=== PATIENT | female | born 1930 | race Caucasian/White ===

== ENCOUNTER 2017-10-15 23:07 | Emergency (ER) | payer MEDICARE ==
[2017-10-16 00:36] LABS: Bilirubin Negative (Negative); Blood, Urine Trace (Negative); Clarity CLEAR (Clear); Glucose, Urine (Dipstick) Negative (Negative); Leukocyte Negative (Negative); Nitrite Negative (Negative); Protein, Urine (Dipstick) Negative (Neg-Trace); Specific Gravity, Urine 1.006 (1.002-1.036); Urobilinogen 0.2 mg/dL (0.2-1.0); pH, Urine 7.5 (5.0-9.0)
[2017-10-16 00:37] LABS: #Basophils 0.1 thou/uL (0.0-0.2); #Eosinphils 0.1 thou/uL (0.0-0.7); #Lymphocytes 1.5 thou/uL (1.20-3.40); #Monocytes 0.5 thou/uL (0.11-0.59); #Neutrophils 3.1 thou/uL (1.40-6.50); %Basophils 1.9 % (0.0-1.0); %Eosinophils 1.2 % (0.0-10.0); %Lymphocytes 27.6 % (21.0-51.0); %Monocytes 9.8 % (0.0-10.0); %Neutrophils 59.6 % (42.0-75.0); Hemoglobin 14.9 g/dL (12.0-16.0); Mean Corpuscular HGB CONC 32.2 g/dL (32.0-36.0); Mean Corpuscular Hemoglobin 30.2 pg (27.0-31.0); Mean Corpuscular Volume 93.9 fl (81.0-99.0); Mean Platelet Volume 7.6 fL (7.4-10.4); Platelet Count 191 thou/uL (130-400); RBC Distribution Width 12.3 % (11.5-14.5); Red Blood Cell (RBC) Count 4.91 mill/uL (4.20-5.40); White Blood Cell (WBC) Count 5.3 thou/uL (4.8-10.8)
[2017-10-16 00:38] LABS: Bacteria/HPF None Seen HPF (None Seen); Hyaline Casts/LPF 0-3 HYALINE CAST LPF (0-3 Hyaline); RBC/HPF 0-3 HPF (0-3); Squamous Epithelial None Seen HPF (0-3); WBC/HPF None Seen HPF (0-3)
[2017-10-16 00:58] LABS: ALT (SGPT) 13 U/L (8-55); AST (SGOT) 22 U/L (5-34); Albumin 4.2 g/dL (3.4-4.8); Alkaline Phosphatase 98 U/L (40-150); Anion Gap 11 mmol/L (10-20); BUN (Urea Nitrogen) 15 mg/dL (9.8-20.1); Bilirubin, Total 1.4 mg/dL (0.2-1.2); Calc. Creatinine Clearance 0 mL/min (70-130); Calcium 9.5 mg/dL (7.8-10.44); Carbon Dioxide 29 mmol/L (23-31); Chloride 104 mmol/L (98-107); Estimated GFR-MDRD 66; Globulin 2.4 g/dL (2.4-3.5); Glucose 99 mg/dL (83-110); Potassium 3.6 mmol/L (3.5-5.1); Protein, Total 6.6 g/dL (6.0-8.3); Sodium 140 mmol/L (136-145)
[2017-10-16 01:02] LABS: CKMB 2.5 ng/mL (0-6.6); Troponin I Less than 0.010 ng/mL (< 0.028)
[2017-10-16] MEDS ORDERED: hydrALAZINE 20 MG/ML VIAL ONE (01:34)
--- NOTE | 2017-10-16 08:34 | CT ---
PRELIMINARY REPORT/[facility]/EMERGENCY AFTER-HOURS PROCEDURE: EXAM: CT Head Without Intravenous Contrast CLINICAL HISTORY: 87 years old, female; Signs and symptoms; Other: Pt shaking TECHNIQUE: Axial computed tomography images of the head/brain without intravenous contrast. COMPARISON: No relevant prior studies available. FINDINGS: No definite acute skull fracture. Included paranasal sinuses are essentially clear. No acute intracranial hemorrhage or mass effect. Ventricle size is normal for age. No definite acute infarct by CT. MRI could be more sensitive/specific for an acute infarct if clinically indicated. IMPRESSION: No acute intracranial hemorrhage or mass effect. No definite acute infarct by CT, see above. Thank you for allowing us to participate in the care of your patient. Dictated and Authenticated by: Kendrick Hardy MD 10/16/2017 1:19 AM Central Time ([place] & [place]) FINAL REPORT NONCONTRAST HEAD CT: HISTORY: Shaking episode. COMPARISON: None. TECHNIQUE: A noncontrast head CT is performed from the skull base to the skull vertex. FINDINGS: This report is in agreement with the preliminary report by [facility]. No acute intracranial process. POS: [facility]
--- NOTE | 2017-11-07 18:19 | EKG ---
Test Reason : Blood Pressure : / mmHG Vent. Rate : 057 BPM Atrial Rate : 057 BPM P-R Int : 190 ms QRS Dur : 078 ms QT Int : 434 ms P-R-T Axes : 058 036 041 degrees QTc Int : 422 ms Sinus bradycardia Otherwise normal ECG Confirmed by CONCETTA ASTORGA ([id number]), rewrite editor LORAINE ANSARI ([id number] on 11/07/2017 6:18:33 PM Referred By: Confirmed By:CONCETTA ASTORGA
== END 2017-10-16 02:17 | disposition home or self-care (01) ==
LOC: ERS 23:07
DX: R25.1 Tremor, unspecified (principal); I10 Essential (primary) hypertension; Z79.899 Other long term (current) drug therapy
CPT/HCPCS: 36415; 70450; 80053; 81003; 81015; 82553; 84484; 85025; 87086; 93005; 96374; J0360

== ENCOUNTER 2018-01-25 13:20 | Observation (INO) | payer MEDICARE ==
[2018-01-25 14:35] LABS: Band 2 % (5-11); Eosinophils 1 % (0-10); Giant Platelets SLIGHT; Hemoglobin 15.7 g/dL (12.0-16.0); Lymphocytes 16 % (21-51); MDiff Complete? YES; Mean Corpuscular HGB CONC 35.4 g/dL (32.0-36.0); Mean Corpuscular Hemoglobin 31.7 pg (27.0-31.0); Mean Corpuscular Volume 89.6 fl (81.0-99.0); Mean Platelet Volume 6.4 fL (7.4-10.4); Monocytes 5 % (0-10); Neutrophil 74 % (42-75); PLT Morphology Comment Appears Adequate; Platelet Count 165 thou/uL (130-400); RBC Distribution Width 12.1 % (11.5-14.5); Reactive Lymphocytes 2 % (0-10); Red Blood Cell (RBC) Count 4.94 mill/uL (4.20-5.40); White Blood Cell (WBC) Count 5.8 thou/uL (4.8-10.8)
[2018-01-25 14:39] LABS: Anion Gap 14 mmol/L (10-20); BUN (Urea Nitrogen) 16 mg/dL (9.8-20.1); Calc. Creatinine Clearance 0 mL/min (70-130); Calcium 9.3 mg/dL (7.8-10.44); Carbon Dioxide 27 mmol/L (23-31); Chloride 104 mmol/L (98-107); Estimated GFR-MDRD 72; Glucose 109 mg/dL (83-110); Potassium 3.5 mmol/L (3.5-5.1); Sodium 141 mmol/L (136-145)
--- NOTE | 2018-01-25 15:19 | RAD ---
CHEST 1 VIEW: HISTORY: Intermittent weakness. COMPARISON: None. FINDINGS: Atherosclerosis of the aortic knob. Normal cardiac silhouette. Pulmonary vessels and hilum are norm al. Costophrenic angles are clear. Hyperinflation with chronic changes. No consolidation or mass. No pneumothorax or osseous abnormalities. IMPRESSION: 1. Atherosclerosis. 2. Hyperinflation. No acute process. POS: [facility]
[2018-01-25 15:44] LABS: Bilirubin Negative (Negative); Blood, Urine Small (Negative); Clarity Clear (Clear); Glucose, Urine (Dipstick) Negative (Negative); Leukocyte Negative (Negative); Nitrite Negative (Negative); Protein, Urine (Dipstick) Negative (Neg-Trace); Urobilinogen 0.2 mg/dL (0.2-1.0)
[2018-01-25 15:54] LABS: Squamous Epithelial 0-3 HPF (0-3); WBC/HPF 0-3 HPF (0-3)
[2018-01-25 17:04] LABS: CKMB 1.3 ng/mL (0-6.6)
[2018-01-25 19:01] VITALS: BMI 20.2
[2018-01-25] MEDS ORDERED: Ondansetron HCl/PF 4 MG/2 ML Vial IVP PRN (19:59)
[2018-01-25] MEDS ORDERED: Bisacodyl 5 MG TAB PO PRN (19:59)
[2018-01-25] MEDS ORDERED: Ondansetron ODT 4 MG TAB PO PRN (19:59)
[2018-01-25] MEDS ORDERED: Acetaminophen 325 MG TAB PO PRN (19:59)
[2018-01-25] MEDS ORDERED: Acetaminophen 650 MG Suppository PR PRN (19:59)
[2018-01-25 20:31] LABS: Troponin I Less than 0.010 ng/mL (< 0.028)
[2018-01-25] MEDS: Famotidine 20 MG TAB PO SCH (20:49)
[2018-01-25 23:09] LABS: Troponin I Less than 0.010 ng/mL (< 0.028)
--- NOTE | 2018-01-26 02:50 | HP ---
PRIMARY CARE PHYSICIAN: Flaco Smith M.D. REASON FOR ADMISSION: Weakness. HISTORY OF PRESENT ILLNESS: This is an 87-year-old white female who reports that for last year she h as been having episodes of generalized weakness and dizziness. This will hit her at any point during the day, but often times after she has been doing some exertion, will last throughout the day and th en she laid down night and go to sleep in the morning, feels much better. However, this episode has been different. It started 2 days ago, started while she was trying to put some covers on her outdoo r furniture, chairs in case of rain and she started to felt generalized weakness and like she could n ot do it, so she sat down to rest and is not improved things at all. She does report symptoms of jarrod e dizziness especially with standing up, activity and moving around and in the emergency room, she al so noted some nausea, though she has not had that here. She denies any new focal weakness, does have some mild weakness in the left lower extremity left over from Guillain-Pass Christian syndrome that she had b [facility] in . She reports that she got good sleep last couple of nights, but is not improved at all and so she came in to be evaluated in the emergency room. Of note, the patient did have an episode o f confusion and trouble speaking earlier this year in October about 3 months ago and had a negative CT scan at that time, negative workup, and was eventually sent home. PAST MEDICAL HISTORY: 1. Hypertension. 2. Irritable bowel syndrome, diarrhea, predominant. 3. Tubular breast cancer, status post resection. 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 5. Psoriasis and shingles of the scalp. PAST SURGICAL HISTORY: 1. Cholecystectomy. 2. Lumbar spinal surgery at L4 and L5 in 1990. 3. Lumpectomy of left breast with radiation in 1990. PSYCHIATRIC HISTORY: None. SOCIAL HISTORY: No tobacco, alcohol, or illicit drug use. She does live by herself. Her son and pato [id number] live in town. FAMILY HISTORY: No significant family history of disease. ALLERGIES: No known drug allergies. CURRENT MEDICATIONS: 1. Lisinopril 40 mg daily. 2. Norvasc 5 mg daily. 3. Atenolol 50 mg 1.5 tablets daily. 4. Protonix 40 mg twice a day. 5. Xanax 0.5 mg half tablet each day at bedtime to help her with sleep. 6. Centrum Silver 1 tablet daily. REVIEW OF SYSTEMS: Constitutional: See HPI. Eyes: She has some chronic macular degeneration, but no significant changes recently. ENT: No congestion, drainage or sore throat. Cardiovascular: No chest pain, no palpitations, no syncope. Pulmonary: No coughing, wheezing, or shortness of breath. She did feel little dyspneic when she was trying to do activity the other day. Gastrointestinal: N o current nausea, vomiting, no abdominal pain, no constipation. She does have intermittent diarrhea from irritable bowel syndrome. Genitourinary: No dysuria or hematuria. Musculoskeletal: No muscle aches or joint pains. Skin: No rashes or other lesions. Neurologic: See HPI. PHYSICAL EXAMINATION: VITAL SIGNS: Blood pressure 187/81, pulse 65, respirations 16, O2 sat 95% on room air, temperature 9 8.3. GENERAL: This is a well-developed elderly white female, in no acute distress. HEENT: Pupils equal, round, and reactive to light. Oropharynx is clear without any exudate or eryth mirlande. NECK: Supple, no lymphadenopathy, no thyroid nodules or enlargement, no JVD. HEART: Regular rate and rhythm, no murmurs, rubs, or gallops. LUNGS: Clear to auscultation bilaterally, no wheezes, crackles, or rhonchi. ABDOMEN: Soft, nontender to palpation. Normoactive bowel sounds, no hepatosplenomegaly or other mas ses. EXTREMITIES: No clubbing, cyanosis, or edema. She does have some mild atrophy of the left medial qu adriceps compared to the right. SKIN: No rashes or other lesions noted. NEUROLOGIC: The patient has cranial nerves II-XII intact and equal bilaterally. No facial droop. N egative HINTS exam. Deep tendon reflexes 2+ in all extremities. Strength 5/5 in all extremities. C erebellar testing with normal finger to nose bilaterally. She does have some mild worse heel to coronel with the left leg. This may be due to some mild weakness in her thigh, otherwise normal. PSYCHIATRIC: Alert and oriented x3, normal mood and affect. LABORATORY DATA: CBC within normal limits. Basic metabolic panel within normal limits. Cardiac mar ker set negative x1. Urinalysis negative for infection. Chest x-ray: I did review the films done i n the emergency room along with the radiologist's report shows atherosclerosis of the aortic knob and hyperinflation noted. No acute processes. A CT of the brain done in 10/2017 showed no acute intrac ranial hemorrhage, mass effect or definitive acute infarct. No significant abnormalities. ASSESSMENT AND PLAN: 1. Generalized weakness and some dizziness, this is a broad differential. She has not had negative cardiac workups thus far. We will trend her troponins, make sure they do not go up any that she will have any changes to this thus far into the episode. She has had normal EKG. At this point, cardiac etiology is unlikely, so we will hold off any stress testing at this time. I am concerned about the possibility of transient ischemic attacks and strokes, especially with her episode back in October since she had a normal CT at that time. We will go ahead and do an MRI of the brain to make sure she does not have any evidence of previous or current stroke. 2. Hypertension. We will resume patient's blood pressure medications. 3. Irritable bowel syndrome. 4. Gastrointestinal prophylaxis, put the patient on Pepcid twice a day. 5. Deep venous thrombosis prophylaxis, put the patient on sequential compression devices on bed. We will hold off on Lovenox and she is now likely to be here more than a day. CODE STATUS: I discussed this with the patient at length. She decided that due to her age, she woul d like to be a DNR. Should she be incapacitated, her medical decision maker would be her son, Jacky Hayes.
[2018-01-26 05:18] LABS: Anion Gap 13 mmol/L (10-20); BUN (Urea Nitrogen) 20 mg/dL (9.8-20.1); Calc. Creatinine Clearance 47 mL/min (70-130); Calcium 9.2 mg/dL (7.8-10.44); Carbon Dioxide 25 mmol/L (23-31); Chloride 105 mmol/L (98-107); Estimated GFR-MDRD 70; Glucose 101 mg/dL (83-110); Potassium 3.8 mmol/L (3.5-5.1); Sodium 139 mmol/L (136-145)
[2018-01-26 07:17] LABS: #Basophils 0.1 thou/uL (0.0-0.2); #Eosinphils 0.1 thou/uL (0.0-0.7); #Lymphocytes 1.8 thou/uL (1.20-3.40); #Monocytes 0.6 thou/uL (0.11-0.59); #Neutrophils 4.1 thou/uL (1.40-6.50); %Basophils 1.5 % (0.0-1.0); %Lymphocytes 27.6 % (21.0-51.0); %Monocytes 8.8 % (0.0-10.0); %Neutrophils 61.1 % (42.0-75.0); Hemoglobin 14.5 g/dL (12.0-16.0); Mean Corpuscular HGB CONC 33.7 g/dL (32.0-36.0); Mean Corpuscular Hemoglobin 31.8 pg (27.0-31.0); Mean Corpuscular Volume 94.2 fl (81.0-99.0); Mean Platelet Volume 6.6 fL (7.4-10.4); Platelet Count 183 thou/uL (130-400); Red Blood Cell (RBC) Count 4.56 mill/uL (4.20-5.40); White Blood Cell (WBC) Count 6.7 thou/uL (4.8-10.8)
[2018-01-26] MEDS: Famotidine 20 MG TAB PO SCH (09:21)
[2018-01-26 09:47] LABS: ALT (SGPT) 20 U/L (8-55); AST (SGOT) 19 U/L (5-34); Albumin 3.6 g/dL (3.4-4.8); Alkaline Phosphatase 75 U/L (40-150); Bilirubin, Direct 0.3 mg/dL (0.1-0.3); Bilirubin, Total 0.9 mg/dL (0.2-1.2); Protein, Total 5.6 g/dL (6.0-8.3)
--- NOTE | 2018-01-26 10:37 | MRI ---
MRI BRAIN NONCONTRAST: Date: 01/26/18 HISTORY: 87-year-old female with dizziness and weakness. COMPARISON: No prior MRIs of the brain. FINDINGS: The ventricles are normal in size and configuration. There is no restricted diffusion, midline shift or any other mass effect, recent intraaxial hemorrhage, or extraaxial fluid collection. There are a few scattered punctate T2-hyperintensities in the cerebral white matter consistent with mild chronic ischemic white matter changes due to mild microvascular atherosclerosis. In the right centrum semiovale, there is an approximately 1.3 x 1 cm focal patchy lesion which is hyp erintense on T2 WI and FLAIR (axial image 19 of 27, series 3 and 4), without restricted diffusion. Th is is larger than the other tiny white matter lesions, and may represent a small, old white matter in farction. IMPRESSION: 1. Mild chronic ischemic white matter changes. 2. Evidence for a small, right deep cerebral white matter, old lacunar infarction. 3. No acute intracranial findings. jn[] POS: [facility]
[2018-01-26 11:43] VITALS: BP 100/55; TEMP 97.6
--- NOTE | 2018-01-26 12:33 | DIS ---
DATE OF ADMISSION: 01/25/2018 DATE OF DISCHARGE: 01/26/2018 PRIMARY CARE PROVIDER: Dr. Flaco Smith. ADMITTING DIAGNOSES: 1. Generalized weakness. 2. Dizziness. 3. Orthostatic hypotension. CONDITION OF PATIENT ON THE DAY OF DISCHARGE: Stable. I assessed Ms. Hayes on the day of discharge . She denies any chest pain or shortness of breath. She denies any dizziness. Weakness has resolve d. Vital signs are stable. S1 and S2 are heard, regular. Lungs are clear to auscultation bilateral ly. DISCHARGE MEDICATIONS: Her atenolol dose was decreased to 50 mg at bedtime, lisinopril 40 mg daily, multivitamin/iron 1 tablet daily, pantoprazole 40 mg 2 times a day, amlodipine 5 mg at bedtime and Xa nax 0.25 mg at bedtime are to be continued. HOSPITAL COURSE: Ms. Hayes is a pleasant 87-year-old lady who was admitted to [facility] on 01/25/2018 for dizziness and generalized weakness. She improved clinically, with res olution of her symptoms. MRI of the brain on 01/26/2018 showed mild chronic ischemic white matter ch anges, evidence for small old right deep cerebral white matter infarction and no acute intracranial f indings. She had normal troponins. She was seen by walking program and ambulated well. She was found to have orthostatic hypotension. She also had bradycardia at times, with heart rate in the mid 50s. She has been advised to decrease her atenolol dose to 50 mg at bedtime. She has also been advised to have her blood pressure and heart rate checked 3 times a day and shows readings to he r primary care provider. If she continues to be symptomatic, consideration may be given to taking li sinopril at night instead of in the morning. I am also giving her a prescription for compression sto ckings. She had a normal TSH during this hospitalization. On the day of discharge, she has an unremarkable c omprehensive metabolic profile except for decreased total protein of 5.6, normal TSH, normal white co unt, normal hemoglobin and normal platelet count. Many thanks for allowing me to participate in your patient's care. Please feel free to contact me wi th any questions or concerns. DISCHARGE DESTINATION: Home.
== END 2018-01-26 12:59 | disposition home or self-care (01) ==
LOC: SCSER 13:20 → 2SW 16:20
PROVIDERS: ADMIT Emergency Medicine; ATTEND Emergency Medicine
DX: R53.1 Weakness (principal); R42 Dizziness and giddiness; I95.1 Orthostatic hypotension; I10 Essential (primary) hypertension; K58.9 Irritable bowel syndrome, unspecified; Z79.899 Other long term (current) drug therapy
CPT/HCPCS: 70551; 71045; 80048 ×2; 80076; 82553; 84443; 84484 ×2; 85025 ×2; 93005; 97139; 99285; G0378; 36415; 81003; 81015